=== PATIENT | male | born 1995 | race Caucasian/White ===

== ENCOUNTER 2019-04-04 11:18 | Emergency (ER) | payer OTHER ==
[~2019-04-04] VITALS: Ht 177.8 cm; Wt 82.4 kg
[2019-04-04 13:27] LABS: BASO # 0.1 10^3/uL (0.0-0.2); BASO % 0.9 % (0.0-1.0); EOS # 0.3 10^3/uL (0.0-0.5); EOS % 3.3 % (0.0-3.0); HEMATOCRIT 45.8 % (42.0-52.0); HEMOGLOBIN 15.5 g/dl (13.5-17.5); LYMPH # 3.5 10^3/uL (1.5-5.0); LYMPH % 33.7 % (24.0-44.0); MEAN CORPUSCULAR HGB CONC 33.8 g/dl (32.0-36.5); MEAN CORPUSCULAR VOLUME 91.6 fl (80.0-96.0); MONO # 0.9 10^3/uL (0.0-0.8); MONO % 8.9 % (0.0-5.0); NEUTROPHILS # 5.3 10^3/uL (1.5-8.5); NEUTROPHILS % 51.8 % (36.0-66.0); PLATELET COUNT, AUTOMATED 324 10^3/uL (150-450); WHITE BLOOD COUNT 10.3 10^3/uL (4.0-10.0)
[2019-04-04 13:48] LABS: ALT/SGPT 52 U/L (12-78); BILIRUBIN,DIRECT 0.1 MG/DL (0.0-0.2); BILIRUBIN,TOTAL 0.3 MG/DL (0.2-1.0); BLOOD UREA NITROGEN 22 MG/DL (7-18); CALCIUM LEVEL 9.1 MG/DL (8.5-10.1); CARBON DIOXIDE LEVEL 31 MEQ/L (21-32); CHLORIDE LEVEL 101 MEQ/L (98-107); CREATININE FOR GFR 0.91 MG/DL (0.70-1.30); GLOMERULAR FILTRATION RATE > 60.0 (>60); GLUCOSE, FASTING 90 MG/DL (70-100); LIPASE 193 U/L (73-393); POTASSIUM SERUM 4.9 MEQ/L (3.5-5.1); SODIUM LEVEL 138 MEQ/L (136-145); TOTAL PROTEIN 7.1 GM/DL (6.4-8.2)
[2019-04-04] MEDS: GASTROGRAFIN SOLUTION 30ML PO SCH ×2 (16:20→17:00)
[2019-04-04] MEDS ORDERED: ISOVUE-370 76% 100ML VIAL (Q9967) As Ordered ONE (17:24)
--- NOTE | 2019-04-04 18:32 | REPVR ---
PROCEDURE INFORMATION: Exam: CT Abdomen and Pelvis With Contrast Exam date and time: 04/04/2019 5:38 PM Clinical history: 23 years old, male; Abdominal pain; Other: Umbilical hernia site; Additional info: Pain at umbilical hernia site TECHNIQUE: Imaging protocol: Computed tomography of the abdomen and pelvis with intravenous contrast. Radiation optimization: All CT scans at this facility use at least one of these dose optimization techniques: automated exposure control; mA and/or kV adjustment per patient size (includes targeted exams where dose is matched to clinical indication); or iterative reconstruction. Contrast material: ISOVUE 370; Contrast volume: 100 ml; Contrast route: IV; COMPARISON: No relevant prior studies available. FINDINGS: Lungs: Minimal bibasilar atelectatic changes. Mediastinum: There is a gas-filled distal esophagus versus a small hiatal hernia. Liver: The liver measures 22.1 cm in the craniocaudad dimension, consistent with hepatomegaly. There is hypodense fatty infiltration of the liver. Gallbladder and bile ducts: No calcified stones. No ductal dilation. Pancreas: Unremarkable. No ductal dilation. Spleen: Heterogeneous density of the spleen, contributed by the phase of injection. Adrenals: No mass. Kidneys and ureters: Unremarkable as visualized. No hydronephrosis. Stomach and bowel: Mildly distended jejunal loops are identified with air contrast levels. There is no complete obstruction to the flow of contrast into more distal bowel, although partial obstruction cannot be excluded. Appendix: There is mild gaseous distention of the appendix measuring 8 mm in diameter. Mild wall thickening of the appendix is visualized, although no significant acute periappendiceal stranding is identified. Early appendicitis cannot be excluded. Intraperitoneal space: No free air. Vasculature: No abdominal aortic aneurysm. Lymph nodes: Mildly enlarged inguinal and external iliac chain lymph nodes are identified bilaterally. A right external iliac chain lymph node measures 1.8 x 0.9 cm. Scattered mildly enlarged mesenteric lymph nodes are identified. Mesenteric adenitis is suggested. Bladder: The bladder is distended. Reproductive: Unremarkable as visualized. Bones/joints: Degenerate changes are visualized within the lower thoracic spine. Soft tissues: There is a small area of fatty density associated within the umbilicus. There is no herniation of bowel into the umbilicus. IMPRESSION: 1. There is mild gaseous distention of the appendix. Mild wall thickening of the appendix is visualized, although no significant acute periappendiceal stranding is identified. Early appendicitis cannot be excluded. 2. There is hypodense fatty infiltration of the liver. Hepatomegaly. 3. The bladder is distended. 4. Mildly distended jejunal loops are identified. There is no complete obstruction to the flow of contrast into more distal bowel, although partial obstruction cannot be excluded. 5. Mildly enlarged inguinal and external iliac chain lymph nodes are identified bilaterally. Scattered mildly enlarged mesenteric lymph nodes are identified, suggestive of mesenteric adenitis. 6. Additional findings described above. Electronically signed by: Ricky Israel On 04/04/2019 18:32:43 PM
--- NOTE | 2019-04-04 20:20 | ED PDOC ---
Post-Departure Follow-Up dr carr and ft blas peguero faxed formal report of ct abd/p for fu Viktor Lowery MD Apr 04, 2019 20:20
[2019-04-04 20:21] VITALS: BP 134/70
== END 2019-04-04 20:22 | disposition home or self-care (01) ==
LOC: M ED 11:18
DX: R10.33 Periumbilical pain (principal); R93.5 Abnormal findings on diagnostic imaging of other abdominal regions, including retroperitoneum; F17.220 Nicotine dependence, chewing tobacco, uncomplicated; Z88.2 Allergy status to sulfonamides
CPT/HCPCS: 36415; 74177; 80048; 80076; 81001; 83605; 83690; 85025; 99284; Q9967

== ENCOUNTER → 2019-04-21 | Outpatient (CLI) | payer OTHER ==
--- NOTE | 2019-04-21 08:49 | REP ---
Anterior abdominal ultrasonography for umbilical hernia: The patient has history of umbilical hernia repair in 2011, now complains of new pain onset and a palpable supraumbilical mass. Ultrasonography of the umbilical and periumbilical area is without and with Valsalva reveal a small supraumbilical peritoneal defect measuring up to 5 mm. Mesenteric fat is seen protruding through the defect, however no bowel is identified. The hernia sac measures approximately 5 mm in With Valsalva and with transducer pressure. The volume of fat within the hernia slightly changes. Impression: Tiny fat containing supraumbilical hernia. Electronically Signed by Prasanna Batista MD 04/21/2019 08:41 A
== END ==
LOC: M RAD 06:24
PROVIDERS: ATTEND Surgery
DX: K42.9 Umbilical hernia without obstruction or gangrene (principal)

== ENCOUNTER 2019-05-16 10:57 | Day surgery (SDC) | payer OTHER ==
[~2019-05-16] VITALS: Ht 177.8 cm; Wt 83.5 kg
[~2019-05-16 10:57] MED LIST: LR 1,000 ML IV ONE; ceFAZolin SOD 2 GM in IV 1 EA IV ONE
[2019-05-16] MEDS ORDERED: PROPOFOL 200 MG/20 ML VIAL As Ordered ONE (11:34)
[2019-05-16] MEDS ORDERED: dexameTHASONE 4 MG/ML 1ML VIAL (J1100) As Ordered ONE (11:35)
[2019-05-16] MEDS ORDERED: ONDANSETRON 4MG/2ML VIAL (J2405) As Ordered ONE (11:35)
[2019-05-16] MEDS ORDERED: fentaNYL 250 MCG/5 ML INJECTION (J3010) As Ordered ONE (11:35)
[2019-05-16] MEDS ORDERED: MIDAZOLAM INJ 2 MG/2 ML VIAL (J2250) As Ordered ONE (11:35)
[2019-05-16] MEDS ORDERED: LIDOCAINE 2% INJ 100 MG/5 ML SDV (FOR ANES.) As Ordered ONE (11:35)
[2019-05-16] MEDS ORDERED: ROCURONIUM BROMIDE 50 MG/5 ML VIAL As Ordered ONE ×2 (11:35→13:20)
[2019-05-16] MEDS ORDERED: BUPIVACAINE/EPIN 0.25% 30 ML VIAL As Ordered ONE (12:39)
[2019-05-16] MEDS ORDERED: LACRILUBE (AKWA TEARS) OPHTH OINT 3.5 GM As Ordered ONE (13:00)
[2019-05-16] MEDS ORDERED: ACETAMINOPHEN 1000MG 100ML IV BTL (OFIRMEV) (J0131 PER 10MG) As Ordered ONE (13:14)
[2019-05-16] MEDS ORDERED: SUGAMMADEX SODIUM 500 MG/5 ML VIAL (BRIDION) As Ordered ONE (13:21)
[2019-05-16] MEDS ORDERED: KETOROLAC 60 MG/2 ML VIAL (J1885) As Ordered ONE (13:21)
[2019-05-16] MEDS ORDERED: NORCO, ANEXSIA 5/325MG TABLET (HYDROcodone/ACETAMINOPHEN) PO PRN (14:00)
[2019-05-16] MEDS ORDERED: LR 1,000 ML IV SCH (14:00)
[2019-05-16] MEDS ORDERED: PERCOCET 5MG/325MG TAB PO PRN (14:00)
[2019-05-16] MEDS ORDERED: fentaNYL 100 MCG/2 ML INJECTION (J3010) IV PRN (14:00)
[2019-05-16] MEDS ORDERED: ONDANSETRON 4MG/2ML VIAL (J2405) IV PRN (14:00)
--- NOTE | 2019-05-16 14:16 | RO ---
DATE OF PROCEDURE: 05/16/2019 PREOPERATIVE DIAGNOSIS: Incarcerated recurrent umbilical hernia. POSTOPERATIVE DIAGNOSIS: Incarcerated recurrent umbilica hernia. PROCEDURES: Robotic repair of incarcerated recurrent umbilical hernia. SURGEON: Dr. Prasanna Stanley. WELL TESTING OPERATOR: LAURA Alicea. ANESTHESIA: General. ESTIMATED BLOOD LOSS: 5 mL. COMPLICATIONS: None. INDICATIONS FOR PROCEDURE: The patient is a 23-year-old male who presents with periumbilical pain. He was found to have a recurrent umbilical hernia. Recommendation is to proceed with robotic repair. Risks and benefits of the procedure not limited but including bleeding, infection, hernia recurrence, hernia formation, damage to surrounding structures, need for further surgery were discussed in detail with the patient. Informed consent was obtained. Procedure was planned. DESCRIPTION OF PROCEDURE: The patient brought back to the operating room 7. After sufficient sedation, the abdomen was sterilely prepped and draped. Next time-out was done to confirm proper patient and proper procedure. Following that 8 mm incision made in the left lower quadrant, Veress needle was inserted and the abdomen was insufflated to 50 mmHg. Next, the Veress needle was removed and an 8 mm robotic port was used to gain access to the abdomen. Once the abdomen was entered, two more 8 mm ports were placement. one subxiphoid, one in the right upper quadrant. The robot was then connected to the ports. Next from the console the peritoneum was incised and horizontally superior to the umbilicus till the preperitoneal space was entered. Preperitoneal space was then dissected free inferiorly surrounding the small umbilical hernia. There was a small amounts of preperitoneal fat within the defect that was reduced. Once this was all completed, 0 Stratafix suture was used to re-approximate the fascial defect. This was then covered with a 3 cm circular portion of ProGrip mesh. Once that was completed the preperitoneal pocket was closed with a #2-0 V-Loc suture. Once that was completed, the abdomen was desufflated. Skin incisions were closed with #4-0 Vicryl subcuticular sutures. The abdomen was cleaned and dried. Steri-Strips, 4x4 and tape were applied thus ending the procedure.
[2019-05-16 16:05] VITALS: BP 141/77
== END 2019-05-16 16:20 | disposition home or self-care (01) ==
LOC: M SDC 10:57
PROVIDERS: ATTEND Surgery
DX: K42.0 Umbilical hernia with obstruction, without gangrene (principal); R06.83 Snoring; Z88.2 Allergy status to sulfonamides
CPT/HCPCS: 49653; C1781; J0131; J0690; J1100; J1885; J2250; J2405; J3010